=== PATIENT | female | born 1975 | race African-American/Black ===

== ENCOUNTER 2018-03-06 09:31 | Emergency (ER) | payer SELFPAY ==
[~2018-03-06] VITALS: Ht 180.3 cm; Wt 173.3 kg
[2018-03-06 09:41] VITALS: BP 144/82; Ht 180.3 cm; Wt 173.3 kg
== END 2018-03-06 10:30 | disposition left against medical advice (07) ==
LOC: ED 09:31
DX: J20.9 Acute bronchitis, unspecified (principal); Z88.8 Allergy status to other drugs, medicaments and biological substances